=== PATIENT | male | born 1980 | race African-American/Black ===

== ENCOUNTER 2023-10-18 12:39 | Emergency (ER) | payer OTHER ==
[2023-10-18 12:48] VITALS: BP 113/78; PULSE 87; RESP 17; TEMP 87; BMI 24.3
[2023-10-18] MEDS ORDERED: LIDOCAINE 4% PATCH TP ONE (16:49)
[2023-10-18 17:37] LABS: CALCIUM 9.1 mg/dL (8.5-10.1); POTASSIUM 3.7 mmol/L (3.5-5.1)
[2023-10-18 17:38] LABS: BLOOD UREA NITROGEN 11.2 mg/dL (7-18)
[2023-10-18] MEDS ORDERED: LIDOCAINE PATCH REMOVAL MC SCH (22:00)
== END 2023-10-18 19:28 | disposition home or self-care (01) ==
LOC: JERFT 12:39
DX: M54.50 Low back pain, unspecified (principal)
CPT/HCPCS: 36415; 72131-TC; 80048; 99284-25